=== PATIENT | male | born 1970 | race African-American/Black ===

== ENCOUNTER 2016-11-03 16:08 | Emergency (ER) | payer OTHER ==
[~2016-11-03] VITALS: Ht 172.7 cm; Wt 127.0 kg
[2016-11-03 16:12] VITALS: Ht 172.7 cm; Wt 127.0 kg
--- NOTE | 2016-11-03 17:54 | RADRPT ---
PROCEDURE: XR Lumbar Spine. CLINICAL INDICATION: Lower back pain after falling. TECHNIQUE: AP, lateral, oblique, and cone-down lateral views of the lumbar spine were obtained. COMPARISON: No prior studies are available for comparison. FINDINGS: There is normal vertebral mineralization and alignment. No fracture or subluxation is seen. The disc spaces are normal in appearance. The posterior elements are unremarkable. The soft tissues appear n ormal. There are mild, diffuse degenerative changes with small anterior osteophytes. IMPRESSION: No acute fracture or dislocation. Mild, diffuse, degenerative disk disease. RPTAT: EE .Elizabeth Cruz MD, MD Date Time Electronically viewed and signed by .Elizabeth Cruz MD, on 11/03/2016 17:54 .F/
[2016-11-03] MEDS ORDERED: TRAM50TA2 PO (18:45)
[2016-11-03 18:54] VITALS: BP 172/88; PULSE 66; RESP 18; TEMP 98.5
--- NOTE | 2016-11-03 19:22 | ERD ---
ER Documentation Chief Complaint Date/Time DATE: 11/03/16 TIME: 19:19 Chief Complaint LOW BACK AND UPPER BACK PAIN FROM FALLING . NO MOTOR DEFICIT HPI 46-year-old male with past medical history of hypertension presents to the ED complaining of a back injury that occurred earlier today at 2 PM. States that he was sitting on a chair at the liquor store and the chair accidentally broke and collapsed. States that he landed on the lower back region. States that it feels like a tightening sharp sensation and rates the pain a 9 out of 10. States that the retail bakery manager gave him to pain relievers but is unsure of the name. States that the pain radiates to the right buttocks. Denies any chest pain, shortness of breath, abdominal pain, nausea, vomiting, constipation , diarrhea, fever, chills. He takes HCTZ. Denies any drug, alcohol use. States that he smokes cigars. ROS All systems reviewed and are negative except as per history of present illness. Medications Home Meds Active Scripts Tramadol HCl (Tramadol HCl) 50 Mg Tablet, 50 MG PO Q4 Y for PAIN, #20 TAB Prov:JENNY CHAVARRIA PA-C 11/03/16 PMhx/Soc Medical and Surgical Hx: pt denies Medical Hx, pt denies Surgical Hx Hx Alcohol Use: No Hx Substance Use: No Hx Tobacco Use: No Smoking Status: Never smoker Physical Exam Vitals Vital Signs Date Time Temp Pulse Resp B/P Pulse Ox O2 Delivery O2 Flow Rate FiO2 11/03/16 18:54 98.5 66 18 172/88 98 Room Air 11/03/16 16:12 98.8 91 20 160/89 98 Physical Exam Const: [id number], well-nourished. In no acute distress. Head: Atraumatic, normocephalic Eyes: Normal Conjunctiva without injection. No purulent discharge. ENT: Normal external ear, nose. Moist oropharynx without tonsillar exudates. Non -erythematous pharynx. Uvula midline. No drooling. No trismus. Neck: No cervical midline tenderness. Full range of motion. No meningismus. No cervical lymphadenopathy. No JVD. Resp: Clear to auscultation bilaterally. No wheezing, rhonchi, rales, or crackles. No accessory muscle use. No retractions. Cardio: Regular rate and rhythm. No murmurs, rubs or gallops. Abd: Soft, nontender non distended. Normal bowel sounds. No palpable masses. No rebound tenderness. No guarding. Negative McBurney's point. Negative psoas sign. Negative obturator sign. Skin: No petechiae or rashes Back: Slight L4 and L5 midline tenderness. Tenderness to palpation of the right buttocks region. No tenderness to palpation of the coccyx. No erythema, edema, deformities. No CVA tenderness. Ext: No cyanosis, or edema. Neur: Awake and alert. Normal gait. Normal coordination. Psych: Normal Mood and Affect Procedures/MDM This is a 46-year-old male with a past medical history of hypertension presents to the ED complaining of lower back pain after a mechanical fall from a chair taking. Patient is afebrile nontoxic appearing patient's blood pressure was noted to be 160/89. Patient's blood pressure was elevated (>120/80) but appears stable without evidence of hypertension emergency or urgency. The patient was counseled about the risks of hypertension and urged to pursue outpatient monitoring and therapy within a week with their primary care physician. Patient denied wanting pain medications at this time. A lumbar x- ray was ordered to further evaluate patient since he had slight midline tenderness. PROCEDURE: XR Lumbar Spine. CLINICAL INDICATION: Lower back pain after falling. TECHNIQUE: AP, lateral, oblique, and cone-down lateral views of the lumbar spine were obtained. COMPARISON: No prior studies are available for comparison. FINDINGS: There is normal vertebral mineralization and alignment. No fracture or subluxation is seen. The disc spaces are normal in appearance. The posterior elements are unremarkable. The soft tissues appear normal. There are mild, diffuse degenerative changes with small anterior osteophytes. IMPRESSION: No acute fracture or dislocation. Mild, diffuse, degenerative disk disease. Patient is ambulating here in the ED without difficulty. Denies saddle anesthesia, numbness or tingling, urine or bowel incontinence, weakness. Low suspicion for cauda equina syndrome, cord compression, nephrolithiasis, aortic aneurysm, aortic dissection, epidural abscess, spinal hematoma, malignancy, pyelonephritis, degenerative disc disease, spinal stenosis, or other emergent conditions. Discharge medications: Tramadol Follow up with primary care physician in 1-2 days. Instructed patient to return to the ED sooner for any worsening symptoms. Patient's questions were answered. Patient understood and agreed with discharge plan. Patient discharged stable. Departure Diagnosis: Primary Impression: Injury of back Encounter type: initial encounter Qualified Code: S39.92XA - Injury of back , initial encounter Condition: Stable Patient Instructions: Relieving Back Pain, Back Pain (Acute Or Chronic) Referrals: PERCY NAIDU MD (PCP) [facility] YOU HAVE RECEIVED A MEDICAL SCREENING EXAM AND THE RESULTS INDICATE THAT YOU DO NOT HAVE A CONDITION THAT REQUIRES URGENT TREATMENT IN THE EMERGENCY DEPARTMENT. FURTHER EVALUATION AND TREATMENT OF YOUR CONDITION CAN WAIT UNTIL YOU ARE SEEN IN YOUR DOCTORS OFFICE WITHIN THE NEXT 1-2 DAYS. IT IS YOUR RESPONSIBILITY TO MAKE AN APPOINTMENT FOR FOLOW-UP CARE. IF YOU HAVE A PRIMARY DOCTOR --you should call your primary doctor and schedule an appointment IF YOU DO NOT HAVE A PRIMARY DOCTOR YOU CAN CALL OUR PHYSICIAN REFERRAL HOTLINE AT IF YOU CAN NOT AFFORD TO SEE A PHYSICIAN YOU CAN CHOSE FROM THE FOLLOWING [facility] [address] [facility] [address] [facility]. [facility] [address] [facility] [address] [facility] [address] [facility]. [address] [facility]. [facility] YOU HAVE RECEIVED A MEDICAL SCREENING EXAM AND THE RESULTS INDICATE THAT YOU DO NOT HAVE A CONDITION THAT REQUIRES URGENT TREATMENT IN THE EMERGENCY DEPARTMENT. FURTHER EVALUATION AND TREATMENT OF YOUR CONDITION CAN WAIT UNTIL YOU ARE SEEN IN YOUR DOCTORS OFFICE WITHIN THE NEXT 1-2 DAYS. IT IS YOUR RESPONSIBILITY TO MAKE AN APPOINTMENT FOR FOLOW-UP CARE. IF YOU HAVE A PRIMARY DOCTOR --you should call your primary doctor and schedule and appointment IF YOU DO NOT HAVE A PRIMARY DOCTOR YOU CAN CALL OUR PHYSICIAN REFERRAL HOTLINE AT . IF YOU CAN NOT AFFORD TO SEE A PHYSICIAN YOU CAN CHOSE FROM THE FOLLOWING [facility] INSTITUTIONS: [facility] [address] [place] [address] [facility] [address] [place] [address] [facility] [address] [place] [address] [facility] URGENT CARE/SPECIALTIES Additional Instructions: FOLLOW UP WITH YOUR PRIMARY CARE PHYSICIAN TOMORROW.Return to this facility if you are not improving as expected. JENNY CHAVARRIA PA-C Nov 03, 2016 19:22
== END 2016-11-03 18:55 | disposition home or self-care (01) ==
LOC: FTE 16:08
DX: S39.92XA Unspecified injury of lower back, initial encounter (principal); W07.XXXA Fall from chair, initial encounter; Y92.9 Unspecified place or not applicable
CPT/HCPCS: 72100; Z7502